=== PATIENT | male | born 1985 | race Caucasian/White ===

== ENCOUNTER 2018-02-14 15:41 | Emergency (ER) | payer OTHER ==
[2018-02-14 16:22] VITALS: BP 134/76; PULSE 97; RESP 18; TEMP 98.1
[2018-02-14] MEDS ORDERED: CEPHALEXIN 500 MG CAP PO STA (17:10)
--- NOTE | 2018-02-14 17:10 | ED ---
Skin/Abscess/FB HPI - General Chief complaint: Skin/Abscess/Foreign Body Stated complaint: Bump on arm Time Seen by Provider: 02/14/18 16:38 Source: patient, RN notes reviewed Mode of arrival: ambulatory Limitations: no limitations - History of Present Illness Initial comments: This is a 33-year-old male who presents to the emergency department with chief complaint of a bump on his right arm. Patient states that he noticed a pimple on his right forearm 4 days ago. He states over the past 2 days it has grown in size and has become painful. Patient states that he has had an abscess on his chest before. He states that he is unsure if he has a history of MRSA. He states that he took Bactrim last time but developed an ALLERGIC reaction to it. Denies any fevers or chills, chest pain or shortness of breath, abdominal pain , nausea or vomiting. Denies any drainage from the lesion. - Related Data Home Medications Medication Instructions Recorded Confirmed levETIRAcetam [Keppra] 500 mg PO BID 10/26/14 10/26/14 Previous Rx's Medication Instructions Recorded ALPRAZolam [Xanax] 0.5 mg PO Q8HR PRN #10 tablet 10/26/14 Cephalexin [Keflex] 500 mg PO Q8HR #15 cap 10/26/14 Cephalexin [Keflex] 500 mg PO Q6HR #20 cap 02/14/18 Allergies Allergy/AdvReac Type Severity Reaction Status Date / Time sulfamethoxazole Allergy Swelling Verified 02/14/18 16:22 [From Bactrim] trimethoprim [From Bactrim] Allergy Swelling Verified 02/14/18 16:22 Review of Systems ROS Statement: Those systems with pertinent positive or pertinent negative responses have been documented in the HPI. ROS Other: All systems not noted in ROS Statement are negative. Past Medical History Past Medical History: Seizure Disorder History of Any Multi-Drug Resistant Organisms: None Reported Past Surgical History: No Surgical Hx Reported Past Psychological History: No Psychological Hx Reported Smoking Status: Current every day smoker Past Alcohol Use History: None Reported Past Drug Use History: Marijuana General Exam - General Exam Comments Initial Comments: General: Awake and alert, well-developed; in no apparent distress. HEENT: Head atraumatic, normocephalic. Pupils are equal, round and reactive to light. Extraocular movements intact. Oropharynx moist without erythema or exudate. Neck: Supple. Normal ROM. Cardiovascular: Regular rate and rhythm. No murmurs, rubs or gallops. Chest symmetrical. Respiratory: Lungs clear to auscultation bilaterally. No wheezes, rales or rhonchi. Normal respiratory effort with no use of accessory muscles. Musculoskeletal: Normal ROM, no tenderness bilateral upper and lower extremities. Ambulating normally. Skin: Approximately 3.0 cm in diameter area of induration and erythema with central scabbing right medial ventral forearm. No fluctuance. Neurological: Alert and oriented x3. CN II-XII grossly intact. Speech is fluent and answers are appropriate. No focal neuro deficits. Psychiatric: Normal mood and affect. No overt signs of depression or anxiety noted. Limitations: no limitations Course Vital Signs 02/14/18 16:20 Temperature 98.1 F Pulse Rate 97 Respiratory 18 Rate Blood Pressure 134/76 O2 Sat by Pulse 99 Oximetry Medical Decision Making - Medical Decision Making This is a 33-year-old male who presents to the emergency department with chief complaint of a bump on his right arm. On physical examination, there is a 3.0 cm area of erythematous induration. No fluctuance. Patient denies any drainage , fevers or chills. Denies a history of MRSA. Denies history of IV drug use. Vital signs are stable and patient is in no acute distress. He will be started on Keflex. Return parameters were discussed including spreading of redness or streaking of redness up the arm. Patient is in agreement with this plan and voices understanding. All questions were answered. Disposition Clinical Impression: Cellulitis Disposition: HOME SELF-CARE Condition: Good Instructions: Cellulitis (ED) Additional Instructions: Please take medications as prescribed. Please apply frequent warm compresses. Please follow up with primary care provider within 1-2 days. Return to emergency department if symptoms should worsen or any concerns arise. Prescriptions: Cephalexin [Keflex] 500 mg PO Q6HR #20 cap Is patient prescribed a controlled substance at d/c from ED?: No Referrals: None,Stated [Primary Care Provider] - 1-2 days Time of Disposition: 17:14
== END 2018-02-14 17:17 | disposition home or self-care (01) ==
LOC: EC 15:41
DX: L03.113 Cellulitis of right upper limb (principal); G40.909 Epilepsy, unspecified, not intractable, without status epilepticus; F17.200 Nicotine dependence, unspecified, uncomplicated; Z79.899 Other long term (current) drug therapy; Z88.2 Allergy status to sulfonamides
CPT/HCPCS: 99283